=== PATIENT | male | born 1970 | race Caucasian/White ===

== ENCOUNTER 2016-03-25 05:36 | Emergency (ER) | payer BC ==
[2016-03-25] MEDS ORDERED: KETOROLAC TROMETHAMINE INJ/PF 30 MG/1 ML SDV IV ONE (06:40)
[2016-03-25] MEDS ORDERED: MORPHINE SULFATE 10 MG/ML INJ IV ONE (06:40)
[2016-03-25] MEDS ORDERED: NORMAL SALINE 1000 ML 1,000 ML IV ONE (06:40)
[2016-03-25] MEDS ORDERED: ONDANSETRON HCL INJ/PF 4 MG/2 ML SDV IV ONE (06:40)
--- NOTE | 2016-03-25 06:43 | ER Document Report ---
ED GI/ - General Time seen by provider: 06:39 Mode of Arrival: Ambulatory Information source: Patient TRAVEL OUTSIDE OF THE [place] IN LAST 30 DAYS: No - HPI Patient complains to provider of: Abdominal pain, Flank pain, Vomiting Onset: This morning Timing/Duration: Sudden, Persistent Quality of pain: Sharp, Stabbing Location: RLQ, Right flank Associated symptoms: Nausea, Vomiting - General Chief Complaint: Flank Pain Stated Complaint: FLANK PAIN Notes: Patient is a 46-year-old male presenting to the emergency department with complaints of right flank and right lower quadrant pain. Patient states that he woke up at 02:00 this morning with pain. Patient took a Percocet for his pain which he vomited up soon after. Patient has a history of multiple kidney stones, Crohn's disease, and a small bowel injuries that have been surgically repaired. Patient is very uncomfortable. Patient states that he sees a talent engineer, Dr. Mcgrath, at [facility]. Patient is allergic to lactose. (JAMARI NICOLE) - Related Data Allergies/Adverse Reactions: lactose [Lactose] Allergy (Intermediate, Verified 01/11/16 13:33) Past Medical History - General Information source: Patient, [facility] Records - Social History Smoking Status: Never Smoker Cigarette use (# per day): No Chew tobacco use (# tins/day): No Frequency of alcohol use: None Drug Abuse: None Family History: None Patient has suicidal ideation: No Patient has homicidal ideation: No Renal/ Medical History: Reports: Hx Kidney Stones GI Medical History: Reports: Hx Crohn's Disease Past Surgical History: Reports: Hx Abdominal Surgery - hernia repair, Hx Bowel Surgery - bowel resection - Immunizations Hx Diphtheria, Pertussis, Tetanus Vaccination: Yes Hx Pneumococcal Vaccination: 03/11/04 Review of Systems - Review of Systems Constitutional: No symptoms reported EENT: No symptoms reported Cardiovascular: No symptoms reported Respiratory: No symptoms reported Gastrointestinal: See HPI, Abdominal pain, Nausea, Vomiting Genitourinary: See HPI, Flank pain Male Genitourinary: No symptoms reported Musculoskeletal: No symptoms reported Skin: No symptoms reported Hematologic/Lymphatic: No symptoms reported Neurological/Psychological: No symptoms reported -: Yes All other systems reviewed and negative Physical Exam - Vital signs Interpretation: Normal - General General appearance: Alert, Other - appears uncomfortable In distress: Mild - HEENT Head: Normocephalic, Atraumatic Eyes: Normal Pupils: PERRL Mucous membranes: Normal - Respiratory Respiratory status: No respiratory distress Chest status: Nontender Breath sounds: Normal Chest palpation: Normal - Cardiovascular Rhythm: Regular Heart sounds: Normal auscultation Murmur: No - Abdominal Inspection: Normal Distension: No distension Bowel sounds: Normal Tenderness: Tender - RLQ tenderness to palpation Organomegaly: No organomegaly - Back Back: Normal, Tender - Right flank is tender to palpation - Extremities General upper extremity: Normal inspection, Normal ROM, Normal strength General lower extremity: Normal inspection, Normal ROM, Normal strength - Neurological Neuro grossly intact: Yes Cognition: Normal Orientation: AAOx4 Vincenzo Coma Scale Eye Opening: Spontaneous Vincenzo Coma Scale Verbal: Oriented [place] Coma Scale Motor: Obeys Commands [place] Coma Scale Total: 15 Speech: Normal Sensory: Normal - Psychological Associated symptoms: Normal affect, Normal mood - Skin Skin Temperature: Warm Skin Moisture: Dry Course - Re-evaluation Re-evalutation: 03/25/16 08:21 Urine has 115 RBCs per high-power field consistent with renal colic. Patient reports he has an appointment with his urologist tomorrow. (MANJINDER AHMADI) - Vital Signs Vital signs: Temp Pulse Resp BP Pulse Ox 97.3 F 68 19 154/83 H 98 03/25/16 05:40 03/25/16 06:30 03/25/16 06:30 03/25/16 06:30 03/25/16 06:30 (JAMARI NICOLE) (MANJINDER AHMADI) - Laboratory Laboratory results interpreted by me: 03/25/16 07:30 Urine Blood LARGE H (MANJINDER AHMADI) Discharge - Discharge Clinical Impression: Renal colic on right side Condition: Stable Disposition: HOME, SELF-CARE Additional Instructions: Kidney Stone: You are passing a kidney stone. These stones are usually due to increased calcium or uric acid concentrations in your urine. Stones within the kidney itself are not painful. The pain occurs as the stone leaves the kidney to pass down the long tube, called the ureter, leading to the bladder. If the stone is small, it will usually pass by itself. Most patients can pass the stone at home. You will usually receive medications for pain, nausea or vomiting, and sometimes a medication to assist in passing the kidney stone. However, if the pain is very severe or if vomiting prevents you from taking oral pain medications, you may need to return for further treatment. Drink three or four quarts of fluids per day. You will be given pain medication (if needed) and urine strainers. Strain all your urine to see if the stone passes. If your doctor has asked you to bring the stone in for analysis, return with the stone once it has passed. Return if pain or vomiting become severe, if you develop a high fever, if you are unable to pass your urine, or if other unusual symptoms occur. TAJKE THE PAIN MEDICATION NEEDED. DRINK PLENTY OF FLUIDS. FOLLOW UP WITH YOUR UROLOGIST TOMORROW SCHEDULED. RETURN TO THE EMERGENCY ROOM IF ANY NEW OR WORSENING SYMPTOMS. Prescriptions: Oxycodone HCl/Acetaminophen [Percocet 5-325 mg Tablet] 1 - 2 tab PO ASDIR PRN # 15 tablet PRN Reason: Scribe Attestation: 03/25/16 08:24 I personally performed the services described in the documentation, reviewed and edited the documentation which was dictated to the scribe in my presence, and it accurately records my words and actions. (MANJINDER AHMADI) Scribe Documentation - Scribe Written by Scribe:: MANJINDER AHMADI MD, SCRIBE 03/25/16 0829 Acting as scribe for: Dr. Ahmadi ([facility]) (MANJINDER AHMADI)
[2016-03-25 08:03] LABS: APPEARANCE,URINE CLEAR; BILIRUBIN,URINE NEGATIVE (NEGATIVE); GLUCOSE, URINE NEGATIVE (NEGATIVE); KETONES,URINE NEGATIVE (NEGATIVE); LEUKOCYTE ESTERASE,URINE NEGATIVE (NEGATIVE); NITRITE,URINE NEGATIVE (NEGATIVE); PROTEIN,URINE NEGATIVE (NEGATIVE); URINE SPECIFIC GRAVITY 1.014; UROBILINOGEN,URINE NEGATIVE mg/dL (<2.0)
[2016-03-25 08:38] VITALS: BP 120/74
== END 2016-03-25 08:42 | disposition home or self-care (01) ==
LOC: ER 05:36
DX: N23 Unspecified renal colic (principal); Z87.442 Personal history of urinary calculi; R11.2 Nausea with vomiting, unspecified; Z87.828 Personal history of other (healed) physical injury and trauma; Z87.19 Personal history of other diseases of the digestive system; Z91.018 Allergy to other foods; Z90.49 Acquired absence of other specified parts of digestive tract
CPT/HCPCS: 99284; 96361; 96374; 96375; 81001; J1885; J2270; J2405; J7030

== ENCOUNTER 2017-04-27 09:52 | Emergency (ER) | payer BC ==
[2017-04-27] MEDS ORDERED: ONDANSETRON HCL INJ/PF 4 MG/2 ML SDV IV ONE (11:40)
[2017-04-27] MEDS ORDERED: NORMAL SALINE 1000 ML 1,000 ML IV ONE ×2 (11:40→17:20)
[2017-04-27] MEDS ORDERED: HYDROMORPHONE HCL INJ/PF 2 MG/ML AMPULE IV ONE ×4 (11:40→20:49)
--- NOTE | 2017-04-27 11:46 | ER Document Report ---
ED Medical Screen (RME) - General Chief Complaint: Flank Pain Stated Complaint: ABDOMINAL PAIN Time Seen by Provider: 04/27/17 11:39 Mode of Arrival: Ambulatory Information source: Patient TRAVEL OUTSIDE OF THE [place] IN LAST 30 DAYS: No - HPI Onset: Other - 2-3 DAYS Onset/Duration: Gradual Quality of pain: Cramping, Dull Severity: Moderate Associated Symptoms: Diarrhea, Nausea, Sweating Exacerbated by: Food Relieved by: Denies Similar symptoms previously: Yes - LESS SEVERE THAN PRESENT Recently seen / treated by doctor: Yes - Rx FOR CROHN'S 2 DAYS AGO (DR. CARDOZA) - Related Data Allergies/Adverse Reactions: lactose [Lactose] Allergy (Intermediate, Verified 04/27/17 09:53) Past Medical History - General Information source: Patient - Social History Chew tobacco use (# tins/day): No Frequency of alcohol use: None Drug Abuse: None - Past Medical History Cardiac Medical History: Denies: Hx Coronary Artery Disease, Hx Heart Attack, Hx Hypertension Pulmonary Medical History: Denies: Hx Asthma, Hx Bronchitis, Hx COPD, Hx Pneumonia, Hx Tuberculosis Neurological Medical History: Denies: Hx Cerebrovascular Accident, Hx Seizures Renal/ Medical History: Reports: Hx Kidney Stones. Denies: Hx Peritoneal Dialysis GI Medical History: Reports: Hx Crohn's Disease Musculoskeltal Medical History: Denies Hx Arthritis Past Surgical History: Reports: Hx Abdominal Surgery - hernia repair, Hx Bowel Surgery - bowel resection - Immunizations Hx Diphtheria, Pertussis, Tetanus Vaccination: Yes Review of Systems - Review of Systems Constitutional: Diaphoresis EENT: No symptoms reported Cardiovascular: No symptoms reported Respiratory: No symptoms reported Gastrointestinal: See HPI Genitourinary: See HPI, Flank pain Musculoskeletal: No symptoms reported Skin: No symptoms reported Neurological/Psychological: No symptoms reported Physical Exam - Vital signs Vitals: Temp Pulse Resp BP Pulse Ox 99.6 F 94 18 116/80 94 04/27/17 10:15 04/27/17 10:15 04/27/17 10:15 04/27/17 10:15 04/27/17 10:15 Interpretation: Normal - General General appearance: Other - APPEARS UNCOMFORTABLE In distress: None - HEENT Head: Normocephalic Eyes: Normal Conjunctiva: Normal Ears: Normal Nasal: Normal Mouth/Lips: Normal Mucous membranes: Dry Pharynx: Normal - Respiratory Respiratory status: No respiratory distress Breath sounds: Normal - Cardiovascular Rhythm: Regular Heart sounds: Normal auscultation Murmur: No - Abdominal Inspection: Normal, Healed incision Bowel sounds: Hypoactive Tenderness: Tender - LOWER - Extremities General upper extremity: Normal inspection General lower extremity: Normal inspection - Neurological Neuro grossly intact: Yes Cognition: Normal Orientation: AAOx4 - Psychological Associated symptoms: Normal affect, Normal mood - Skin Skin Temperature: Warm Skin Moisture: Dry Skin Color: Normal Skin Turgor: Elastic Course - Vital Signs Vital signs: Temp Pulse Resp BP Pulse Ox 99.6 F 94 18 116/80 94 04/27/17 10:15 04/27/17 10:15 04/27/17 10:15 04/27/17 10:15 04/27/17 10:15
[2017-04-27 12:18] LABS: APPEARANCE,URINE SLIGHTLY-CLOUDY; BILIRUBIN,URINE NEGATIVE (NEGATIVE); COLOR,URINE YELLOW; GLUCOSE, URINE NEGATIVE (NEGATIVE); KETONES,URINE TRACE mg/dL (NEGATIVE); LEUKOCYTE ESTERASE,URINE NEGATIVE (NEGATIVE); NITRITE,URINE NEGATIVE (NEGATIVE); PROTEIN,URINE NEGATIVE (NEGATIVE); URINE SPECIFIC GRAVITY 1.017; UROBILINOGEN,URINE NEGATIVE mg/dL (<2.0)
[2017-04-27 12:26] LABS: ABSOLUTE EOSINOPHILS # (AUTO) 0.2 10^3/uL (0.0-0.6); ABSOLUTE LYMPHOCYTES (AUTO) 1.7 10^3/uL (0.5-4.7); ABSOLUTE MONOCYTES (AUTO) 1.5 10^3/uL (0.1-1.4); ABSOLUTE NEUT (AUTO) 8.5 10^3/uL (1.7-8.2); BASOPHILS % (AUTO) 0.4 % (0-2); EOSINOPHILS % (AUTO) 1.5 % (0-6); HEMATOCRIT 39.4 % (37.9-51.0); HEMOGLOBIN 13.1 g/dL (13.5-17.0); MEAN CORPUSCULAR HEMOGLOBIN 28.5 pg (27.0-33.4); MEAN CORPUSCULAR HGB CONC 33.2 g/dL (32.0-36.0); MEAN CORPUSCULAR VOLUME 86 fl (80-97); MONOCYTES % (AUTO) 12.8 % (3-13); PLATELET COUNT 375 10^3/uL (150-450); RED BLOOD COUNT 4.58 10^6/uL (4.35-5.55); RED CELL DISTRIBUTION WIDTH 14.4 % (11.5-14.0); SEGMENTED NEUTROPHILS % (AUTO) 71.3 % (42-78); TOTAL CELLS COUNTED % (AUTO) 100 %
[2017-04-27 12:35] LABS: ALANINE AMINOTRANSFERASE 32 U/L (21-72); ALBUMIN 3.7 g/dL (3.5-5.0); ALKALINE PHOSPHATASE 79 U/L (38-126); ANION GAP 11 (5-19); ASPARTATE AMINO TRANSFERASE 18 U/L (17-59); BILIRUBIN,DIRECT 0.4 mg/dL (0.0-0.4); BILIRUBIN,TOTAL 0.5 mg/dL (0.2-1.3); BLOOD UREA NITROGEN 4 mg/dL (7-20); CALCIUM 9.2 mg/dL (8.4-10.2); CARBON DIOXIDE 28 mmol/L (22-30); CHLORIDE 100 mmol/L (98-107); GLUCOSE 117 mg/dL (75-110); POTASSIUM 3.3 mmol/L (3.6-5.0); SODIUM 139.3 mmol/L (137-145); TOTAL PROTEIN 7.4 g/dL (6.3-8.2)
--- NOTE | 2017-04-27 15:54 | RADIOLOGY REPORT (SQ) ---
EXAM DESCRIPTION: CT ABD/PELVIS WITH IV ORAL COMPLETED DATE/TIME: 04/27/2017 2:58 pm REASON FOR STUDY: ABD PAIN, H/O CROHN'S, H/O KIDNEY STONES COMPARISON: 02/24/2014. TECHNIQUE: CT scan of the abdomen and pelvis performed using helical scanning technique with dynamic intravenous contrast injection. Oral contrast given. Images reviewed with lung, soft tissue, and b one windows. Reconstructed coronal and sagittal MPR images reviewed. Delayed images for evaluation of the urinary system also acquired. All images stored on PACS. All CT scanners at this facility use dose modulation, iterative reconstruction, and/or weight based d osing when appropriate to reduce radiation dose to as low as reasonably achievable (ALARA). [facility]: Dose Right [facility]: CareDose [facility]: Dose Right [facility]: Teradose 4D [facility]: Smart MAPPING CONTRAST TYPE AND DOSE: Not specified. RENAL FUNCTION: NA. RADIATION DOSE: 1340.7 LIMITATIONS: None. FINDINGS: LOWER CHEST: Linear interstitial densities in lung bases consistent with scarring. LIVER: No abnormality seen. SPLEEN: No abnormality seen. PANCREAS: No abnormality seen. GALLBLADDER: No abnormality seen. ADRENAL GLANDS: No abnormality seen. RIGHT KIDNEY AND URETER: No abnormality seen. There are densities in the right kidney which could re present calculi. LEFT KIDNEY AND URETER: No abnormality seen. There are densities in the left kidney which could repr esent calculi. AORTA AND VESSELS: No abnormality seen. RETROPERITONEUM: No retroperitoneal adenopathy, hemorrhage or masses. BOWEL AND PERITONEAL CAVITY: There is surgical clips surrounding the cecum and in region of small americo wel anastomosis. There is evidence of matted loops of small bowel in the right lower quadrant with c ircumscribed mesenteric abscess measuring 3 x 1.9 x 3.1 cm (series image number 49/94 sequence 5 axi al scans and image / series 601 coronal scans). There linear tracks between loops of small bowel in the right lower quadrant with possibility of enteroenteric fistulae between loops of small bowel n ot excluded (image number 47/94 series 5). There is evidence of multiple borderline enlarged mesente maxim nodes noted in the right lower abdomen. There is a mass with focal areas of decreased attenuatio n in ring enhancement in this region which could represent an additional abscess or necrotic nodes me asuring 4 x 2.4x 3.5 cm. There is a circumscribed ovoid enhancing mass with central decreased attenu ation in the right lower quadrant. The possibility of a necrotic node within the mesenteric is not e xcluded. APPENDIX: Appendectomy by history. PELVIS: Urinary bladder: No abnormality seen. Prostate and seminal vesicles: Prostatic calculi. Otherwise no abnormality seen. ABDOMINAL WALL: Postsurgical changes of the anterior abdominal wall with diastases of the rectus musc les. . BONES: No abnormality seen. IMPRESSION: 1. There is again evidence of matted loops of small bowel within the right lower quadra nt at site of previous ileal colonic anastomosis with enteroenteric fistulae and mesenteric abscesses . These findings compatible with a history of Crohn's disease. Changes of mesenteric adenopathy and possible necrotic nodes within the mesentery.. TECHNICAL DOCUMENTATION: JOB ID: [id number] [place]-69 Quality ID # [id number]: Final reports with documentation of one or more dose reduction techniques (e.g., Au tomated exposure control, adjustment of the mA and/or kV according to patient size, use of iterative reconstruction technique) 2010 [employer]- All Rights Reserved
[2017-04-27] MEDS ORDERED: AMPICILLIN SOD/SULBACTAM 3 GM VIAL IV ONE (17:21)
--- NOTE | 2017-04-27 17:32 | ER Document Report ---
ED GI/ - General Chief Complaint: Flank Pain Stated Complaint: ABDOMINAL PAIN Time Seen by Provider: 04/27/17 11:39 Mode of Arrival: Ambulatory Notes: Patient began having pain in his lower abdomen and back Saturday and he thought he might be passing another kidney stone. , patient had his first injection of Stilora, for his Crohn's disease. evening he began to have fever and worsening pain. Saturday he had off and on pain and then Saturday night, last night, he developed significantly more pain. He has been nauseated but denies vomiting. Has had diarrhea, but not seen any blood. Patient was treated a couple of weeks ago for the flu with a Z-Isauro. He finished that medication on Saturday. Denies any cough or chest congestion at this time. Denies any urinary tract symptoms. Has had fevers, as mentioned. Surgical removal of ruptured bowel from trauma, hernia repair, appendectomy, and one surgery on his Crohn's disease. TRAVEL OUTSIDE OF THE [place] IN LAST 30 DAYS: No - Related Data Allergies/Adverse Reactions: lactose [Lactose] Allergy (Intermediate, Verified 04/27/17 09:53) Past Medical History - General Information source: Patient - Social History Smoking Status: Never Smoker Chew tobacco use (# tins/day): No Frequency of alcohol use: None Drug Abuse: None Family History: None, Reviewed & Not Pertinent Patient has suicidal ideation: No Patient has homicidal ideation: No Renal/ Medical History: Reports: Hx Kidney Stones. Denies: Hx Peritoneal Dialysis GI Medical History: Reports: Hx Crohn's Disease Musculoskeltal Medical History: Denies Hx Arthritis Past Surgical History: Reports: Hx Abdominal Surgery - hernia repair, Hx Bowel Surgery - bowel resection - Immunizations Hx Diphtheria, Pertussis, Tetanus Vaccination: Yes Hx Pneumococcal Vaccination: 03/11/04 Review of Systems - Review of Systems Notes: REVIEW OF SYSTEMS: CONSTITUTIONAL : Denies fever. EENT: Denies eye, ear, nose or mouth or throat pain or other symptoms. CARDIOVASCULAR: Denies chest pain. RESPIRATORY: Denies cough, chest congestion, or shortness of breath. GASTROINTESTINAL: See HPI. GENITOURINARY: Denies difficulty or painful urinating, urinary frequency, blood in urine. MUSCULOSKELETAL: See HPI. SKIN: Denies rash or skin lesions. NEUROLOGICAL: Denies LOC or altered mental status. Denies headache. Denies sensory loss or motor deficits. ALL OTHER SYSTEMS REVIEWED AND NEGATIVE. Physical Exam - Vital signs Vitals: Temp Pulse Resp BP Pulse Ox 99.6 F 94 18 116/80 94 04/27/17 10:15 04/27/17 10:15 04/27/17 10:15 04/27/17 10:15 04/27/17 10:15 Interpretation: Normal - Notes Notes: PHYSICAL EXAMINATION: GENERAL: Well-appearing, in no acute distress. Vital signs are normal. HEAD: Atraumatic, normocephalic. EYES: Pupils equal round and reactive to light, extraocular movements intact. ENT: oropharynx clear without exudates. Moist mucous membranes. NECK: Normal range of motion, supple. LUNGS: Breath sounds clear and equal bilaterally. HEART: Regular rate and rhythm without murmurs. ABDOMEN: Soft, mild tenderness in the lower abdomen on the right mostly. No guarding or rebound. No masses. BACK: No tenderness throughout entire back. Some percussion tenderness in the paralumbar regions bilaterally. EXTREMITIES: Normal range of motion without pain. NEUROLOGICAL: Normal speech, normal gait. Normal sensory, motor, and reflex exams. Awake, alert, and oriented x3. Cranial nerves normal. PSYCH: Normal mood, normal affect. SKIN: Warm, dry, no rashes. Course - Re-evaluation Re-evalutation: 04/27/17 17:28 Patient made aware of the CT results. I placed a call to his vp celebrity services , Dr. Jiménez, who call me back and asked that I try to transfer the patient to [facility]. A call has been placed to [facility]. 04/27/17 20:43 Spoke with patient's gastrointestinal doctor who recommended we transfer the patient to [facility] as the likely treatment will be interventional radiology draining the abscesses. This care is not available at this hospital over this weekend. Additionally, we do not have any gastro-division officer weapons department. I was able to arrange for a transfer of the patient to [facility]. Patient was started on Unasyn and IV fluids. - Vital Signs Vital signs: Temp Pulse Resp BP Pulse Ox 98.6 F 78 18 117/74 96 04/27/17 19:31 04/27/17 19:31 04/27/17 10:15 04/27/17 19:31 04/27/17 19:31 - Laboratory Result Diagrams: 04/27/17 11:50 04/27/17 11:50 Laboratory results interpreted by me: 04/27/17 04/27/17 04/27/17 11:50 11:50 11:50 WBC 12.0 H Hgb 13.1 L RDW 14.4 H Absolute Neutrophils 8.5 H Absolute Monocytes 1.5 H Potassium 3.3 L BUN 4 L Glucose 117 H Urine Ketones TRACE H Urine Blood MODERATE H - Diagnostic Test Radiology reviewed: Image reviewed, Reports reviewed - CT scan shows a couple of areas of fairly significant abscess formation. Discharge - Discharge Clinical Impression: Crohns disease, Abscess Condition: Stable Disposition: Critical Access Hospital Referrals: LOVELY CORTEZ MD [Primary Care Provider] - Follow up as needed
[2017-04-27 21:44] VITALS: BP 109/66
== END 2017-04-27 21:45 | disposition short-term general hospital (02) ==
LOC: ER 09:52
DX: K50.90 Crohn's disease, unspecified, without complications (principal); K65.1 Peritoneal abscess; R10.9 Unspecified abdominal pain; Z87.442 Personal history of urinary calculi
CPT/HCPCS: 96376; 99285; 96361; 96375; 96365; 36415; 85025; 80053; 81001; 74177; J0295; J1170; J2405; J7030

== ENCOUNTER 2017-06-21 14:08 | Emergency (ER) | payer BC ==
--- NOTE | 2017-06-21 15:11 | ER Document Report ---
ED Medical Screen (RME) - General TRAVEL OUTSIDE OF THE [place] IN LAST 30 DAYS: No <MANJINDER AHMADI - Last Filed: 06/21/17 15:10> <ALLI GODOY V - Last Filed: 06/21/17 18:11> - General Chief Complaint: Flank Pain Stated Complaint: FLANK PAIN Time Seen by Provider: 06/21/17 15:02 Notes: 47-year-old male patient onset 1030 this morning of right flank pain going into the right groin region. Some hematuria. Has a history of kidney stones. Also has Crohn's disease. Was seen here 2 months ago with right lower quadrant abdominal pain and only a small amount of RBCs in the urine. He ended up having abscesses related to his Crohn's. He states this feels identical to previous kidney stones, and he has passed stones in the past week. He tried taking his pain medication but vomited it. (MANJINDER AHMADI) - Related Data Allergies/Adverse Reactions: lactose [Lactose] Allergy (Intermediate, Verified 06/21/17 14:11) Past Medical History - Social History Chew tobacco use (# tins/day): No Frequency of alcohol use: Social Drug Abuse: None - Past Medical History Cardiac Medical History: Denies: Hx Coronary Artery Disease, Hx Heart Attack, Hx Hypertension Pulmonary Medical History: Denies: Hx Asthma, Hx Bronchitis, Hx COPD, Hx Pneumonia, Hx Tuberculosis Neurological Medical History: Denies: Hx Cerebrovascular Accident, Hx Seizures Renal/ Medical History: Reports: Hx Kidney Stones. Denies: Hx Peritoneal Dialysis GI Medical History: Reports: Hx Crohn's Disease Musculoskeltal Medical History: Denies Hx Arthritis Past Surgical History: Reports: Hx Abdominal Surgery - hernia repair, Hx Bowel Surgery - bowel resection - Immunizations Hx Diphtheria, Pertussis, Tetanus Vaccination: Yes <MANJINDER AHMADI - Last Filed: 06/21/17 15:10> Review of Systems <MANJINDER AHMADI - Last Filed: 06/21/17 15:10> <ALLI GODOY V - Last Filed: 06/21/17 18:11> - Review of Systems Notes: REVIEW OF SYSTEMS: CONSTITUTIONAL: -fevers, -chills EENT: -eye pain, -difficulty swallowing, -nasal congestion CARDIOVASCULAR: -chest pain, -syncope. RESPIRATORY: -cough, -SOB GASTROINTESTINAL: -abdominal pain, + nausea, + vomiting, -diarrhea GENITOURINARY: -+ Hematuria, + dysuria, + flank pain MUSCULOSKELETAL: -back pain, -neck pain SKIN: -rash or skin lesions. HEMATOLOGIC: -easy bruising or bleeding. LYMPHATIC: -swollen, enlarged glands. NEUROLOGICAL: -altered mental status or loss of consciousness, -headache, - neurologic symptoms PSYCHIATRIC: -anxiety, -depression. ALL OTHER SYSTEMS REVIEWED AND NEGATIVE. (ALLI GODOY V) Physical Exam <MANJINDER AHMADI - Last Filed: 06/21/17 15:10> <ALLI GODOY V - Last Filed: 06/21/17 18:11> - Vital signs Vitals: Temp Pulse Resp BP Pulse Ox 99.5 F 82 16 154/90 H 95 06/21/17 15:00 06/21/17 15:00 06/21/17 15:00 06/21/17 15:00 06/21/17 15:00 - Notes Notes: Reviewed vital signs and nursing note as charted by RN. CONSTITUTIONAL: Alert and oriented and responds appropriately to questions HEAD: Normocephalic; atraumatic EYES: PERRL; Conjunctivae clear, sclerae non-icteric ENT: normal nose NECK: Supple without meningismus; non-tender; no cervical lymphadenopathy, no masses CARD: Regular rate and rhythm; no murmurs, no clicks, no rubs, no gallops; symmetric distal pulses RESP: Normal chest excursion without splinting or tachypnea; breath sounds clear and equal bilaterally ABD/GI: Normal bowel sounds; non-distended; soft, right flank tenderness to palpation, no rebound or guarding BACK: The back appears normal and is non-tender to palpation EXT: Normal ROM in all joints; non-tender to palpation; no cyanosis, no effusions, no edema SKIN: Normal color for age and race; warm; dry; good turgor; capillary refill < 2 seconds; no acute lesions noted NEURO: .Cranial nerves 3-12 intact. Motor strength 5/5 bilaterally. Sensation intact to touch bilaterally. No pronator drift. Finger to nose intact bilaterally PSYCH: The patient's mood and manner are appropriate. Grooming and personal hygiene are appropriate. (ALLI GODOY V) Course <MANJINDER AHMADI - Last Filed: 06/21/17 15:10> - Laboratory Result Diagrams: 06/21/17 16:33 06/21/17 16:33 <ALLI GODOY V - Last Filed: 06/21/17 18:11> - Re-evaluation Re-evalutation: 06/21/17 15:47 47-year-old with history of kidney stones here with right-sided flank pain with hematuria Differential diagnoses includes kidney stone, hematuria, acute cystitis, drug abuse, malingering, obstructing infected stone We will obtain basic lab work including CBC, BMP, urinalysis and urine culture We will obtain CT scan of abdomen and pelvis without contrast, will give patient IV fluids, IV morphine and IV Toradol for pain Reassess patient 06/21/17 18:07 CT scan with 4.9 mm stone localized to the right mid ureter, no significant hydronephrosis Patient has normal kidney function, no leukocytosis, urinalysis without any acute cystitis Patient has low potassium, was repleted orally, likely secondary to his recent episodes of diarrhea Patient will follow up with his urologist, Dr. Garduno Pain is well controlled, will start patient on [place] for home Patient was given strict precautions to come back if he is symptoms are not improving, if he has worsening pain, nausea vomiting, fevers or chills Patient understood the discharge instructions (ALLI GODOY V) - Vital Signs Vital signs: Temp Pulse Resp BP Pulse Ox 99.5 F 82 16 154/90 H 95 06/21/17 15:00 06/21/17 15:00 06/21/17 15:00 06/21/17 15:00 06/21/17 15:00 - Laboratory Laboratory results interpreted by me: 06/21/17 06/21/17 06/21/17 16:33 16:33 17:00 Hgb 12.9 L RDW 14.2 H Seg Neutrophils % 78.2 H Potassium 2.8 L* Carbon Dioxide 33 H BUN 4 L Urine Protein 30 H Urine Blood LARGE H Doctor's Discharge <MANJINDER AHMADI - Last Filed: 06/21/17 15:10> <ALLI GODOY V - Last Filed: 06/21/17 18:11> - Discharge Clinical Impression: Kidney stone on right side Condition: Stable Disposition: HOME, SELF-CARE Instructions: Kidney Stone ([facility]) Additional Instructions: Please come back if there worsening fevers, chills, back pain or shortness of breath Please take pain medication as prescribed along with Flomax Please follow-up with urology, Dr. Garduno Prescriptions: Oxycodone HCl/Acetaminophen [Percocet 5-325 mg Tablet] 1 - 2 tab PO Q4H PRN #15 tablet PRN Reason: Referrals: LOVELY CORTEZ MD [Primary Care Provider] - Follow up as needed ATUL GARDUON MD [NO LOCAL MD] - Follow up in 3-5 days
[2017-06-21] MEDS ORDERED: KETOROLAC TROMETHAMINE INJ/PF 30 MG/1 ML SDV IV ONE (15:19)
[2017-06-21] MEDS ORDERED: MORPHINE SULFATE 10 MG/ML INJ IV ONE ×2 (15:20→17:12)
[2017-06-21] MEDS ORDERED: NORMAL SALINE 1000 ML 1,000 ML IV ONE (15:20)
--- NOTE | 2017-06-21 16:04 | RADIOLOGY REPORT (SQ) ---
EXAM DESCRIPTION: CT ABD/PELVIS NO ORAL OR IV COMPLETED DATE/TIME: 06/21/2017 3:42 pm REASON FOR STUDY: kidney stones COMPARISON: Abdominal and pelvic CT scan with oral and IV contrast dated 04/27/2017 TECHNIQUE: CT scan of the abdomen and pelvis performed without intravenous or oral contrast. Images reviewed with lung, soft tissue, and bone windows. Reconstructed coronal and sagittal MPR images revi ewed. All images stored on PACS. All CT scanners at this facility use dose modulation, iterative reconstruction, and/or weight based d osing when appropriate to reduce radiation dose to as low as reasonably achievable (ALARA). [facility]: Dose Right [facility]: CareDose [facility]: Dose Right [facility]: Teradose 4D [facility]: [employer] RADIATION DOSE: CT Rad equipment meets quality standard of care and radiation dose reduction techniq ues were employed. CTDIvol: 6.0 mGy. DLP: 329 mGy-cm.mGy. LIMITATIONS: None. FINDINGS: LOWER CHEST: No significant findings. No nodules or infiltrates. NON-CONTRASTED LIVER, SPLEEN, ADRENALS: Evaluation limited by lack of IV contrast. No identified sign ificant masses. PANCREAS: No masses. No peripancreatic inflammatory changes. GALLBLADDER: No identified stones by CT criteria. No inflammatory changes to suggest cholecystitis. RIGHT KIDNEY AND URETER: No suspicious masses. Assessment limited by lack of IV contrast. Small non obstructing renal calculi are identified. An obstructing 4.9 mm in diameter calculus is identified i n the right mid ureter best seen on image number 54. There is hydronephrosis of the right kidney an d dilatation of the right ureter proximal to this level P LEFT KIDNEY AND URETER: No suspicious masses. Assessment limited by lack of IV contrast. Tiny nonob structing renal calculi are identified. No hydronephrosis or hydroureter. AORTA AND RETROPERITONEUM: No aneurysm. No retroperitoneal masses or adenopathy. BOWEL AND PERITONEAL CAVITY: The previously described matted loops of small bowel at the site of the previous bowel resection appears improved. There are some residual edematous or inflammatory changes . The previously described abscess collection is no longer identified. APPENDIX: Status post appendectomy PELVIS, BLADDER, AND ABDOMINAL WALL:No abnormal masses. No free fluid. Bladder normal. BONES: No significant findings. OTHER: No other significant finding. IMPRESSION: Bilateral nonobstructing renal calculi. An obstructing 4.9 mm in diameter calculus is i dentified at the level of the mid right ureter. Other findings as noted above COMMENT: Quality ID # 436: Final reports with documentation of one or more dose reduction techniques (e.g., Automated exposure control, adjustment of the mA and/or kV according to patient size, use of iterative reconstruction technique) TECHNICAL DOCUMENTATION: JOB ID: [id number] [employer]- All Rights Reserved Reading location - IP/workstation name: [email or web address]
[2017-06-21] MEDS ORDERED: OXYCODONE HCL SR 10 MG TABLET PO ONE (16:09)
[2017-06-21] MEDS ORDERED: ONDANSETRON HCL INJ/PF 4 MG/2 ML SDV IV ONE (16:31)
[2017-06-21 16:52] LABS: ABSOLUTE EOSINOPHILS # (AUTO) 0.1 10^3/uL (0.0-0.6); ABSOLUTE LYMPHOCYTES (AUTO) 1.5 10^3/uL (0.5-4.7); ABSOLUTE MONOCYTES (AUTO) 0.7 10^3/uL (0.1-1.4); ABSOLUTE NEUT (AUTO) 8.1 10^3/uL (1.7-8.2); BASOPHILS % (AUTO) 0.3 % (0-2); EOSINOPHILS % (AUTO) 0.7 % (0-6); HEMOGLOBIN 12.9 g/dL (13.5-17.0); LYMPHOCYTES % (AUTO) 14.3 % (13-45); MEAN CORPUSCULAR HEMOGLOBIN 28.1 pg (27.0-33.4); MEAN CORPUSCULAR HGB CONC 33.1 g/dL (32.0-36.0); MEAN CORPUSCULAR VOLUME 85 fl (80-97); MONOCYTES % (AUTO) 6.5 % (3-13); PLATELET COUNT 264 10^3/uL (150-450); RED BLOOD COUNT 4.59 10^6/uL (4.35-5.55); RED CELL DISTRIBUTION WIDTH 14.2 % (11.5-14.0); SEGMENTED NEUTROPHILS % (AUTO) 78.2 % (42-78); TOTAL CELLS COUNTED % (AUTO) 100 %; WHITE BLOOD COUNT 10.4 10^3/uL (4.0-10.5)
[2017-06-21] MEDS ORDERED: TAMSULOSIN HCL 0.4 MG CAP.SR.24H PO ONE (17:00)
[2017-06-21 17:13] LABS: ANION GAP 11 (5-19); BLOOD UREA NITROGEN 4 mg/dL (7-20); CARBON DIOXIDE 33 mmol/L (22-30); CHLORIDE 98 mmol/L (98-107); GLUCOSE 109 mg/dL (75-110); SODIUM 141.8 mmol/L (137-145)
[2017-06-21 17:18] LABS: APPEARANCE,URINE SLIGHTLY-CLOUDY; BILIRUBIN,URINE NEGATIVE (NEGATIVE); COLOR,URINE YELLOW; GLUCOSE, URINE NEGATIVE (NEGATIVE); KETONES,URINE NEGATIVE (NEGATIVE); LEUKOCYTE ESTERASE,URINE NEGATIVE (NEGATIVE); NITRITE,URINE NEGATIVE (NEGATIVE); PROTEIN,URINE 30 mg/dL (NEGATIVE); URINE SPECIFIC GRAVITY 1.016; UROBILINOGEN,URINE NEGATIVE mg/dL (<2.0)
[2017-06-21 17:59] LABS: POTASSIUM 2.8 mmol/L (3.6-5.0)
[2017-06-21] MEDS ORDERED: POTASSIUM CHLORIDE 20 MEQ/15 ML UDCUP PO ONE (18:02)
[2017-06-21 18:34] VITALS: BP 162/85
== END 2017-06-21 18:34 | disposition home or self-care (01) ==
LOC: ER 14:08
DX: N20.0 Calculus of kidney (principal); E87.6 Hypokalemia; R10.31 Right lower quadrant pain; R31.9 Hematuria, unspecified; R11.2 Nausea with vomiting, unspecified; K50.90 Crohn's disease, unspecified, without complications
CPT/HCPCS: 96376; 99284; 96361; 96374; 96375; 36415; 87086; 85025; 80048; 81001; 74176; J1885; J2270; J2405; J7030

== ENCOUNTER → 2018-10-22 | Day surgery (SDC) | payer BC ==
--- NOTE | 2018-10-22 15:42 | RADIOLOGY REPORT (SQ) ---
EXAM DESCRIPTION: ARTHRO SHOULDER INJECTION; FLUORO/NEEDLE PLACEMENT COMPLETED DATE/TIME: 10/22/2018 3:31 pm REASON FOR STUDY: M25.512 PAIN IN LEFT SHOULDER M25.512 PAIN IN LEFT SHOULDER COMPARISON: None. FLUOROSCOPY TIME: 16 seconds 2 images saved to PACS. LIMITATIONS: None. PROCEDURE: Procedure, risks, benefits and alternatives explained to patient who then gave written co nsent. The left shoulder was marked and a time out was called for correct procedure verification. Po sterior entry site marked using fluoroscopic guidance. Shoulder prepped and draped using sterile ivan hnique. Local anesthesia achieved using 1% lidocaine injection. Hypodermic needle introduced into t he joint space under direct fluoroscopic visualization. Non-ionic contrast instilled to confirm intra -articular position. Dilute gadolinium solution then injected. Needle removed and entry site covered with sterile bandage. No immediate complications noted. TECHNIQUE: Digital images acquired during fluoroscopy and stored on PACS. Patient immediately take n to the MR suite for additional imaging. INJECTION LOCATION: Posterior left shoulder. CONTRAST TYPE AND AMOUNT: 6 cc in 1% lidocaine, 1 cc Omnipaque, 10 cc dilute Omnipaque IMPRESSION: SUCCESSFUL NEEDLE PLACEMENT AND INJECTION FOR LEFT SHOULDER MR ARTHROGRAM USING POSTERIO R APPROACH. COMMENT: Quality ID 145: Final reports for procedures using fluoroscopy that document radiation exp osure indices, or exposure time and number of fluorographic images (if radiation exposure indices are not available) TECHNICAL DOCUMENTATION: JOB ID: [id number] [employer]- All Rights Reserved Reading location - IP/workstation name: [email or web address]
--- NOTE | 2018-10-22 15:42 | RADIOLOGY REPORT (SQ) ---
EXAM DESCRIPTION: ARTHRO SHOULDER INJECTION; FLUORO/NEEDLE PLACEMENT COMPLETED DATE/TIME: 10/22/2018 3:31 pm REASON FOR STUDY: M25.512 PAIN IN LEFT SHOULDER M25.512 PAIN IN LEFT SHOULDER COMPARISON: None. FLUOROSCOPY TIME: 16 seconds 2 images saved to PACS. LIMITATIONS: None. PROCEDURE: Procedure, risks, benefits and alternatives explained to patient who then gave written co nsent. The left shoulder was marked and a time out was called for correct procedure verification. Po sterior entry site marked using fluoroscopic guidance. Shoulder prepped and draped using sterile ivan hnique. Local anesthesia achieved using 1% lidocaine injection. Hypodermic needle introduced into t he joint space under direct fluoroscopic visualization. Non-ionic contrast instilled to confirm intra -articular position. Dilute gadolinium solution then injected. Needle removed and entry site covered with sterile bandage. No immediate complications noted. TECHNIQUE: Digital images acquired during fluoroscopy and stored on PACS. Patient immediately take n to the MR suite for additional imaging. INJECTION LOCATION: Posterior left shoulder. CONTRAST TYPE AND AMOUNT: 6 cc in 1% lidocaine, 1 cc Omnipaque, 10 cc dilute Omnipaque IMPRESSION: SUCCESSFUL NEEDLE PLACEMENT AND INJECTION FOR LEFT SHOULDER MR ARTHROGRAM USING POSTERIO R APPROACH. COMMENT: Quality ID 145: Final reports for procedures using fluoroscopy that document radiation exp osure indices, or exposure time and number of fluorographic images (if radiation exposure indices are not available) TECHNICAL DOCUMENTATION: JOB ID: [id number] [employer]- All Rights Reserved Reading location - IP/workstation name: [email or web address]
--- NOTE | 2018-10-22 16:55 | RADIOLOGY REPORT (SQ) ---
EXAM DESCRIPTION: CT LT UPPER EXTREMITY WITH COMPLETED DATE/TIME: 10/22/2018 3:41 pm REASON FOR STUDY: M25.512 PAIN IN LEFT SHOULDER M25.512 PAIN IN LEFT SHOULDER COMPARISON: Plain radiograph TECHNIQUE: Axial imaging performed through the leftshoulder with reformatted oblique coronal and obl ique sagittal imaging windowed for bone and soft tissues. 3D imaging performed at the workstation including shaded surface display volume rendering and MIPS. All CT scanners at this facility use dose modulation, iterative reconstruction, and/or weight based d osing when appropriate to reduce radiation dose to as low as reasonably achievable (ALARA). [facility]: Dose Right [facility]: CareDose [facility]: Dose Right [facility]: Teradose 4D [facility]: Smart [employer] RADIATION DOSE: CT Rad equipment meets quality standard of care and radiation dose reduction techniq ues were employed. CTDIvol: 9.8 mGy. DLP: 225 mGy-cm. mGy. LIMITATIONS: None. FINDINGS: SOFT TISSUES: No significant finding. BONY ARCHITECTURE: No significant osteophytes. No fracture. GLENOHUMERAL JOINT: Intact. ACROMION AND AC JOINT: No osteophytes. ROTATOR CUFF: No rotator cuff tear. GLENOID, LABRUM AND BICEPS: Biceps tendon normal. No slap tear. OTHER: No other significant finding. IMPRESSION: Normal CT arthrogram of the left shoulder. TECHNICAL DOCUMENTATION: JOB ID: [id number] Quality ID # [id number]: Final reports with documentation of one or more dose reduction techniques (e.g., Au tomated exposure control, adjustment of the mA and/or kV according to patient size, use of iterative reconstruction technique) 2010 [employer]- All Rights Reserved Reading location - IP/workstation name: [email or web address]
== END ==
LOC: RAD 14:30
PROVIDERS: ATTEND Physician Assistant
DX: M25.512 Pain in left shoulder (principal)
CPT/HCPCS: 23350; 77002